=== PATIENT | male | born 1955 | race Hispanic/Latino ===

== ENCOUNTER 2019-01-19 10:52 | Observation (INO) | payer OTHER ==
[~2019-01-19] VITALS: Ht 167.6 cm; Wt 93.0 kg
[2019-01-19] MEDS ORDERED: CEFTRIAXONE SODIUM 2 GM VIAL ONE (11:25)
[2019-01-19] MEDS ORDERED: KETOROLAC TROMETHAMINE 30MG/ML ONE (11:26)
[2019-01-19] MEDS ORDERED: SODIUM CHLORIDE 0.9% 100 ML IV ONE (11:26)
[2019-01-19 12:02] LABS: BASOPHILS % (AUTO) 0.7 % (0.0-5.0); HEMATOCRIT 40.7 % (42-54); LYMPHOCYTES % (AUTO) 13.2 % (21.0-51.0); MEAN CORPUSCULAR HEMOGLOBIN 31.9 pg (27.0-33.0); MEAN CORPUSCULAR HGB CONC 34.7 g/dL (32.0-36.0); MONOCYTES % (AUTO) 8.8 % (3.0-13.0); NEUTROPHILS % (AUTO) 76.3 % (40.0-77.0); PLATELET COUNT (AUTO) 263 K/uL (130-400); RED BLOOD CELL COUNT(AUTO) 4.42 MIL/uL (4.50-6.20); WHITE BLOOD COUNT (AUTO) 11.8 K/uL (4.8-10.8)
[2019-01-19 12:07] LABS: CREATININE 0.8 mg/dL (0.5-1.5); POTASSIUM 4.4 mmol/L (3.5-5.1)
[2019-01-19 13:45] LABS: ERYTHROCYTE SEDIMENTATION RATE 24 MM/HR (0-20)
[2019-01-19] MEDS ORDERED: ACETAMINOPHEN 325 MG TAB PO PRN (15:15)
[2019-01-19] MEDS ORDERED: HYDROCODONE/ACETAMINOPHEN 5/325 MG TAB PO PRN (15:15)
[2019-01-19 17:26] VITALS: BP 130/72
--- NOTE | 2019-01-19 18:00 | NUR ---
Patient admitted to room 330, right knee red and swollen, stated he fell on his right knee 2 weeks ago, voicing very minimal pain
[2019-01-19 19:05] VITALS: BP 130/79
[2019-01-19] MEDS: FAMOTIDINE 20MG TAB 20 MG TAB PO SCH (20:28)
[2019-01-19] MEDS ORDERED: FAMOTIDINE 20MG TAB 20 MG TAB PO SCH (21:00)
[2019-01-19] MEDS ORDERED: KETOROLAC TROMETHAMINE 30MG/ML IM PRN (21:30)
[2019-01-19] MEDS: CEFTRIAXONE SODIUM 1 GM IV SCH (21:56)
[2019-01-20 00:02] VITALS: BP 125/77
[2019-01-20 04:02] VITALS: BP 117/73
[2019-01-20 05:14] LABS: HEMATOCRIT 37.2 % (42-54); MEAN CORPUSCULAR HEMOGLOBIN 31.3 pg (27.0-33.0); MEAN CORPUSCULAR HGB CONC 34.5 g/dL (32.0-36.0); MEAN CORPUSCULAR VOLUME 90.5 fL (79-99); PLATELET COUNT (AUTO) 257 K/uL (130-400); RED BLOOD CELL COUNT(AUTO) 4.11 MIL/uL (4.50-6.20); RED CELL DISTRIBUTION WIDTH 12.8 % (11.0-15.5)
[2019-01-20 05:23] LABS: CREATININE 0.8 mg/dL (0.5-1.5); POTASSIUM 4.1 mmol/L (3.5-5.1)
[2019-01-20 08:00] VITALS: BP 125/76
[2019-01-20] MEDS: FAMOTIDINE 20MG TAB 20 MG TAB PO SCH (08:54)
[2019-01-20] MEDS ORDERED: ENOXAPARIN SODIUM 40 MG/0.4 ML SYRINGE SQ SCH (09:00)
[2019-01-20] MEDS: CEFTRIAXONE SODIUM 1 GM IV SCH (09:38)
[2019-01-20] MEDS: KETOROLAC TROMETHAMINE 30MG/ML IVP PRN ×2 (09:39→17:03)
[2019-01-20 12:49] VITALS: BP 134/76
[2019-01-20] MEDS ORDERED: SULF1TAB42 PO (12:53)
[2019-01-20] MEDS ORDERED: CEPH-578 PO (12:53)
--- NOTE | 2019-01-20 16:20 | NUR ---
RD Notification Pt admitted for R. Knee Abscess. Pt with Obesity Grade I (BMI 33.1). Pt tolerating Regular diet order. Vegetarian diet modification added to Pt diet order. Pt with no nutrition concerns at time of visit. RD encouraged Pt to notify as nutrition concerns arise. Pt LBM 01/19/19. Pt monitored labs: Ca 8.1. RD to continue to monitor. Please notify as nutritional concerns arise. Thank you. Addendum: 01/20/19 at [address] RD Amended: Links added.
--- NOTE | 2019-01-20 17:30 | NUR ---
DISCHARGE INFORMATION WAS PROVIDED TO THE PATIENT WITH PRESCRIPTION AND RECOMMENDATION TO F/U WITH PCP WAS RELAYED TO THE PATIENT WHO VOICED UNDERSTANDING. LEFT VIA W/C AFTER IV ACCESS REMOVAL.
== END 2019-01-20 17:45 | disposition home or self-care (01) ==
LOC: EDH 10:52 → INTOOBSV 15:02 → EDHIP 15:02 → 3AH 17:06
PROVIDERS: ADMIT Internal Medicine; ATTEND Internal Medicine
DX: L02.415 Cutaneous abscess of right lower limb (principal); D72.829 Elevated white blood cell count, unspecified; Z79.899 Other long term (current) drug therapy
CPT/HCPCS: 36415 ×2; 73562; 76882; 80048 ×2; 84145; 85025; 85027; 85651 ×2; 86140; 87040 ×2; 96372 ×2; 96374; 96375; 96376; G0378 ×4; J0696 ×3; J1650; J1885 ×4